=== PATIENT | male | born 1995 | race Caucasian/White ===

== ENCOUNTER 2021-08-22 18:18 | Emergency (ER) | payer MEDICAID ==
[~2021-08-22] VITALS: Ht 175.3 cm; Wt 90.7 kg
[2021-08-22 18:18] VITALS: BP_SYST 130
== END 2021-08-22 18:53 ==
LOC: SED 18:18
DX: S80.211A Abrasion, right knee, initial encounter (principal); Y35.893A Legal intervention involving other specified means, suspect injured, initial encounter; Y93.89 Activity, other specified; Y92.89 Other specified places as the place of occurrence of the external cause; Y99.8 Other external cause status
CPT/HCPCS: 99283